=== PATIENT | female | born 1955 | race American Indian/Alaskan Native ===

== ENCOUNTER 2016-10-13 09:17 | Emergency (ER) | payer MEDICAID ==
--- NOTE | 2016-10-13 09:21 | EDM.PDOC ---
<Bob Vu - Last Filed: 10/13/16 09:42> ED HPI GENERAL MEDICAL PROBLEM - General Chief Complaint: Abdominal Pain Stated Complaint: STOMACH HURTS Time Seen by Provider: 10/13/16 09:20 Source of Information: Reports: Patient, Old records, RN, RN notes reviewed History Limitations: Reports: No limitations Bilateral Upper Abdominal Pain Score (Numeric/FACES): 8 - Related Data Allergies Allergy/AdvReac Type Severity Reaction Status Date / Time No Known Allergies Allergy Verified 10/13/16 09:34 Home Meds: Home Meds Albuterol [Proair HFA] 2 inhalation INH Q6HR PRN 02/08/14 [History] Clopidogrel [Plavix] 75 mg PO DAILY 02/08/14 [History] Insulin Glarg,Human.Rec.Analog [Lantus] 50 units SQ BEDTIME 02/08/14 [History] Insulin Lispro [HumaLOG] 8 units SQ TIDAC 02/08/14 [History] oxyCODONE HCl/Acetaminophen [Percocet 10-325 MG] 1 cap PO BID PRN 02/08/14 [ History] Aspirin [[place] Aspirin] 81 mg PO DAILY 10/12/14 [History] atorvaSTATin [Lipitor] 20 mg PO BEDTIME 10/22/14 [History] Past Medical History HEENT History: Reports: Impaired vision Cardiovascular History: Reports: CAD, High cholesterol, Hypertension, SD, Stents Respiratory History: Reports: Asthma, COPD Gastrointestinal History: Reports: Other (see below) Other Gastrointestinal History: ulcers Musculoskeletal History: Reports: Other (see below) Other Musculoskeletal History: Left rotator cuff injury, right shoulder tendonitis Endocrine/Metabolic History: Reports: Diabetes, type II, IDDM, Obesity/BMI 30+ Social & Family History - Family History Family Medical History: Noncontributory Cardiac: Reports: CAD, Heart failure, High cholesterol, Hypertension Respiratory: Reports: Asthma, COPD GI: Reports: Cholelithiasis Musculoskeletal: Reports: Arthritis Endocrine/Metabolic: Reports: Diabetes, type II - Tobacco Use Smoking Status *Q: Current Every Day Smoker Years of Tobacco use: 35 Packs/Tins Daily: 1 Used Tobacco, but Quit: No Second Hand Smoke Exposure: No - Caffeine Use Caffeine Use: Reports: Coffee - Alcohol Use Days Per Week of Alcohol Use: 0 - Recreational Drug Use Recreational Drug Use: No - Living Situation & Occupation Living situation: Reports: , with family Course - Vital Signs Last Recorded V/S: Last Vital Signs Temp 36.7 C 10/13/16 09:25 Pulse 86 10/13/16 09:55 Resp 16 10/13/16 09:25 BP 166/76 H 10/13/16 09:25 Pulse Ox 95 10/13/16 09:25 - Orders/Labs/Meds Orders: Active Orders 24 hr Category Date Time Status Peripheral IV Care [RC] . DIRECTED Care 10/13/16 09:39 Active RT Aerosol Therapy [RC] ASDIRECTED Care 10/13/16 09:48 Active CULTURE STREP A CONFIRMATION [] Stat Lab 10/13/16 09:25 Results STREP SCRN A RAPID W CULT CONF [] Stat Lab 10/13/16 09:25 Results Sodium Chloride 0.9% [Saline Flush] Med 10/13/16 09:39 Active 10 ml FLUSH ASDIRECTED PRN Peripheral IV Insertion Adult [OM.PC] Stat Oth 10/13/16 09:38 Ordered Medication Orders Sodium Chloride (Saline Flush) 10 ml FLUSH ASDIRECTED PRN PRN Reason: Keep Vein Open Labs: Laboratory Tests 10/13/16 10/13/16 10/13/16 Range/Units 09:36 09:50 09:50 WBC 7.7 (5.0-10.0) 10^3/uL RBC 4.79 (4.2-5.4) 10^6/uL Hgb 13.9 (12.0-16.0) g/dL Hct 41.5 (37.0-47.0) % MCV 86.6 (80-100) fL MCH 29.0 (27.0-34.0) pg MCHC 33.5 (33.0-35.0) g/dL Plt Count 290 (150-450) 10^3/uL Neut % (Auto) 59.8 (42.2-75.2) % Lymph % (Auto) 32.2 (20.5-50.1) % [place] % (Auto) 6.1 (2-8) % Eos % (Auto) 1.8 (1.0-3.0) % Baso % (Auto) 0.1 (0.0-1.0) % Sodium 135 (135-145) mmol/L Potassium 3.7 (3.6-5.0) mmol/L Chloride 98 L (101-111) mmol/L Carbon Dioxide 29.0 (21.0-31.0) mmol/L Anion Gap 11.7 BUN 10 (7-18) mg/dL Creatinine 0.6 (0.6-1.3) mg/dL Est Cr Clr Drug Dosing 73.36 mL/min Estimated GFR (MDRD) > 60 BUN/Creatinine Ratio 16.66 Glucose 145 H (74-105) mg/dL Calcium 9.0 (8.4-10.2) mg/dl Total Bilirubin 0.3 (0.2-1.0) mg/dL AST 14 (10-42) IU/L ALT 10 (10-60) IU/L Alkaline Phosphatase 105 (42-121) IU/L Total Protein 8.2 (6.7-8.2) g/dl Albumin 4.0 (3.2-5.5) g/dl Globulin 4.2 Albumin/Globulin Ratio 0.95 Amylase 44 (28-100) U/L Lipase 32 (22-51) U/L Urine Color Yellow (YELLOW) Urine Appearance Cloudy (CLEAR) Urine pH 7.5 (5.0-9.0) Ur Specific [place] 1.015 (1.005-1.030) Urine Protein 30 H (NEGATIVE) Urine Glucose (UA) Negative (NEGATIVE) Urine Ketones Negative (NEGATIVE) Urine Occult Blood Trace-intact H (NEGATIVE) Urine Nitrite Negative (NEGATIVE) Urine Bilirubin Negative (NEGATIVE) Urine Urobilinogen 1.0 (0.2-1.0) mg/dL Ur Leukocyte Esterase Moderate H (NEGATIVE) Urine RBC 50-75 H /HPF Urine WBC >100 H (0-5/HPF) /HPF Ur Epithelial Cells Moderate H /HPF Urine Bacteria Few (0-FEW/HPF) /HPF Meds: Medications Generic Name Dose Route Start Last Admin Trade Name Freq PRN Reason Stop Dose Admin Sodium Chloride 10 ml 10/13/16 09:39 Saline Flush FLUSH ASDIRECTED PRN Keep Vein Open Discontinued Medications Generic Name Dose Route Start Last Admin Trade Name Freq PRN Reason Stop Dose Admin Albuterol/Ipratropium 3 ml 10/13/16 09:48 10/13/16 09:57 Duoneb 3.0-0.5 Mg/3 Ml NEB 04/10/17 09:49 3 ml ONETIME ONE Administration Departure - Departure Disposition: Home, Self-Care 01 Clinical Impression: Bronchitis Urinary tract infection Qualifiers: Urinary tract infection type: site unspecified Hematuria presence: with hematuria Qualified Code(s): N39.0 - Urinary tract infection, site not specified ; R31.9 - Hematuria, unspecified Instructions: Abdominal Pain, Adult, [id number], Acute Bronchitis, Easy-to- Read, Urinary Tract Infection, Adult, [id number] Care Plan Goals: The patient was advised of the examination, lab, x-ray and CT results during the visit. The patient was discharged with a script for Keflex (500 mg) to take 1 by mouth 3 times per day for 7 days. If the patient has any additional symptoms or concerns, the patient should follow-up with her primary care facility or return to the emergency department. <Marvin Xiong - Last Filed: 10/13/16 12:02> ED HPI GENERAL MEDICAL PROBLEM - History of Present Illness INITIAL COMMENTS - FREE TEXT/NARRATIVE: This 61 yo female patient reports to the ED with upper abdominal pain, a cough and some shortness of breath. The patient reports her pain started several days ago, but has been getting worse. The patient reports she has chronic shortness of breath that seems to be a little worse today. Onset: gradual Duration: Day(s):, Constant, Getting worse Location: Reports: chest, abdomen Quality: Reports: Ache, Dull Severity: moderate Improves with: Reports: None Worsens with: Reports: None Associated Symptoms: Reports: cough, loss of appetite, shortness of breath ED ROS GENERAL - Review of Systems Review Of Systems: ROS reveals no pertinent complaints other than HPI. ED EXAM, GENERAL - Physical Exam Exam: See Below Exam Limited By: No limitations General Appearance: alert, WD/WN, mild distress, obese Eye Exam: bilateral eye: EOMI, normal inspection, PERRL Ears: normal external exam, normal canal, hearing grossly normal, normal TMs Nose: normal inspection, normal mucosa, no blood Throat/Mouth: Normal inspection, Normal lips, Normal teeth, Normal gums, Normal oropharynx, Normal voice, No airway compromise Head: atraumatic, normocephalic Neck: normal inspection, supple, non-tender, full range of motion Respiratory/Chest: no respiratory distress, decreased breath sounds Cardiovascular: normal peripheral pulses, regular rate, rhythm, no edema, no gallop, no murmur, no rub GI/Abdominal: normal bowel sounds, tender (upper abdomen) (Female) Exam: Deferred Rectal (Female) Exam: Deferred Back Exam: normal inspection, full range of motion, NT Extremities: normal inspection, normal range of motion, non-tender, normal capillary refill, no pedal edema Neurological: alert, oriented, CN II-XII intact, normal cognition, normal gait, normal reflexes, no motor/sensory deficits Psychiatric: normal affect, normal mood Skin Exam: Warm, Dry, Intact, Normal color, No rash Lymphatic: no adenopathy Departure - Departure Time of Disposition: 11:57 Condition: fair
[2016-10-13] MEDS ORDERED: Sodium Chloride 0.9% 10 ML Syringe FLUSH PRN (09:39)
[2016-10-13 09:40] VITALS: BP 166/76
[2016-10-13] MEDS ORDERED: Albuterol/Ipratropium 3.0-0.5 MG/3 ML Neb Soln NEB ONE (09:48)
[2016-10-13 10:16] LABS: CHLORIDE,CL 98 mmol/L (101-111); SODIUM,NA 135 mmol/L (135-145)
--- NOTE | 2016-10-13 10:31 | CR ---
CLINICAL HISTORY: 61-year-old female with cough, dyspnea and fever. INTERPRETATION: Medial segment atelectasis/fibrosis middle lobe, on the right. Hypertrophic arthritic changes of the spine. Normal cardiac silhouette without alveolar edema or dependent effusion. No lung mass, hilar lymphadenopathy or focal lobar pneumonia.
--- NOTE | 2016-10-13 11:38 | CT ---
CLINICAL HISTORY: 61-year-old 171 pound female with hematuria and "abdominal" pain. This diabetic fe male smoker was reported on previous CT scan August 2015 to have "nephrolithiasis and cholecystect wilfrid but otherwise unremarkable. INTERPRETATION: Abnormal. 1. Arteriovascular calcifications and punctate calcifications upper/mid pole calyces, respectively, right and left kidney unchanged since exam 31 August 2015. No pyelocaliectasis or ureterectasis e ither kidney. No intraluminal calcifications urinary bladder. 2. Extensive atheromatous calcifications aortoiliac and renal arteries. No aneurysm or dissection. 3. Cholecystectomy. Normal liver, stomach, spleen, pancreas (postop dilatation common bile duct). No new renal cortical mass lesion (cystic or solid). Normal appendix RLQ. 4. No pelvic or abdominal mass lesion, inflammatory "dirty" peritoneal fat, signs of mechanical josé l obstruction, ascites or free intraperitoneal air. 5. Lung bases are clear. CONCLUSION: Nephrolithiasis (unchanged). No new signs of obstructive uropathy.
== END 2016-10-13 12:10 | disposition home or self-care (01) ==
LOC: DL.ED 09:17
DX: J40 Bronchitis, not specified as acute or chronic (principal); N39.0 Urinary tract infection, site not specified; Z79.82 Long term (current) use of aspirin; Z79.4 Long term (current) use of insulin; Z79.899 Other long term (current) drug therapy; I25.10 Atherosclerotic heart disease of native coronary artery without angina pectoris; I10 Essential (primary) hypertension; E78.00 Pure hypercholesterolemia, unspecified; Z95.5 Presence of coronary angioplasty implant and graft; J44.9 Chronic obstructive pulmonary disease, unspecified; J45.909 Unspecified asthma, uncomplicated; E11.9 Type 2 diabetes mellitus without complications; E66.9 Obesity, unspecified; Z68.30 Body mass index [BMI] 30.0-30.9, adult; F17.200 Nicotine dependence, unspecified, uncomplicated
CPT/HCPCS: 36415; 71020; 74176; 80053; 81001; 82150; 83690; 85025; 87081; 87430; 87804; 94640; 99284

== ENCOUNTER 2016-11-20 09:54 | Emergency (ER) | payer MEDICAID ==
[2016-11-20 10:30] VITALS: BP 181/60
--- NOTE | 2016-11-20 10:47 | EDM.PDOC ---
{null, ED HPI GENERAL MEDICAL PROBLEM - General Chief Complaint: Abdominal Pain Stated Complaint: [id number] STOMACH PAIN KIDNEY STONE Time Seen by Provider: 11/20/16 10:30 Source of Information: Reports: Patient History Limitations: Reports: No Limitations - History of Present Illness INITIAL COMMENTS - FREE TEXT/NARRATIVE: This 61 yo female patient reports to the ED with lower abdominal pain. The patient reports her pain started at 0700 this morning and states her pain is a sharp stabbing pain in her lower abdomen radiating to her lower back. The patient reports she has had similar symptoms in the past due to a UTI and kidney stones. The patient reports she has not taken her pain medications this morning, but came directly to the ED to figure out what is happening. The patient reports she has been in the clinic this week with no problems. The patient is supposed to be following up with Urology in December. Onset: Today, Sudden Onset Date: 11/20/16 Onset Time: 07:00 Duration: Constant, Getting Worse Location: Reports: Abdomen (lower abdomen radiating to her back) Quality: Reports: Ache, Sharp Severity: Severe Improves with: Reports: None Worsens with: Reports: None Context: Reports: Other Pelvic Pain Score (Numeric/FACES): 10 - Related Data Allergies Allergy/AdvReac Type Severity Reaction Status Date / Time No Known Allergies Allergy Unverified 11/20/16 10:01 Home Meds: Home Meds Albuterol [Proair HFA] 2 inhalation INH Q6HR PRN 02/08/14 [History] Clopidogrel [Plavix] 75 mg PO DAILY 02/08/14 [History] Insulin Glarg,Human.Rec.Analog [Lantus] 70 units SQ BEDTIME 02/08/14 [History] Insulin Lispro [HumaLOG] 8 units SQ TIDAC 02/08/14 [History] oxyCODONE HCl/Acetaminophen [Percocet 10-325 MG] 0.5 tab PO TID PRN 02/08/14 [ History] Aspirin [[place] Aspirin] 81 mg PO DAILY 10/12/14 [History] Lisinopril [Prinivil] 10 mg PO DAILY 11/20/16 [History] Metoprolol Succinate 25 mg PO DAILY 11/20/16 [History] atorvaSTATin Calcium [Atorvastatin Calcium] 80 mg PO BEDTIME 05/18/17 [History] Past Medical History HEENT History: Reports: None Cardiovascular History: Reports: CAD, High Cholesterol, Hypertension, ID, Stents Respiratory History: Reports: Asthma Gastrointestinal History: Reports: Other (See Below) Other Gastrointestinal History: ulcers Genitourinary History: Reports: Renal Calculus Musculoskeletal History: Reports: None Other Musculoskeletal History: Left rotator cuff injury, right shoulder tendonitis Neurological History: Reports: CVA Psychiatric History: Reports: None Endocrine/Metabolic History: Reports: Diabetes, Type II Hematologic History: Reports: None Oncologic (Cancer) History: Reports: None Dermatologic History: Reports: Other (See Below) Other Dermatologic History: allergy to sun. itching and reddness - Past Surgical History Cardiovascular Surgical History: Reports: Coronary Artery Stent GI Surgical History: Reports: None Female Surgical History: Reports: None Social & Family History - Family History Family Medical History: Noncontributory Cardiac: Reports: CAD, Heart Failure, High Cholesterol, Hypertension Respiratory: Reports: Asthma, COPD GI: Reports: Cholelithiasis Musculoskeletal: Reports: Arthritis Endocrine/Metabolic: Reports: Diabetes, type II - Tobacco Use Smoking Status *Q: Current Every Day Smoker Years of Tobacco use: 35 Packs/Tins Daily: 1 Used Tobacco, but Quit: No Second Hand Smoke Exposure: No - Caffeine Use Caffeine Use: Reports: Coffee - Alcohol Use Days Per Week of Alcohol Use: 0 - Recreational Drug Use Recreational Drug Use: No - Living Situation & Occupation Living situation: Reports: , with Family ED ROS GENERAL - Review of Systems Review Of Systems: ROS reveals no pertinent complaints other than HPI. ED EXAM, RENAL/ - Physical Exam Exam: See Below Exam Limited By: No Limitations General Appearance: Alert, WD/WN, Moderate Distress, Obese Eye Exam: Bilateral Eye: EOMI, Normal Inspection, PERRL Ears: Normal External Exam, Normal Canal, Hearing Grossly Normal, Normal TMs Nose: Normal Inspection, Normal Mucosa, No Blood Throat/Mouth: Normal Inspection, Normal Lips, Normal Teeth, Normal Gums, Normal Oropharynx, Normal Voice, No Airway Compromise Head: Atraumatic, Normocephalic Neck: Normal Inspection, Supple, Non-Tender, Full Range of Motion Respiratory/Chest: No Respiratory Distress, Lungs Clear, Normal Breath Sounds, No Accessory Muscle Use, Chest Non-Tender Cardiovascular: Normal Peripheral Pulses, Regular Rate, Rhythm, No Edema, No Gallop, No JVD, No Murmur, No Rub GI/Abdominal: Normal Bowel Sounds, No Organomegaly, No Distention, No Abnormal Bruit, No Mass, Pelvis Stable, Tender (lower abdomen) (Female) Exam: Deferred Rectal (Female) Exam: Deferred Back Exam: Normal Inspection, Full Range of Motion, NT Extremities: Normal Inspection, Normal Range of Motion, Non-Tender, Normal Capillary Refill, No Pedal Edema Neurological: Alert, Oriented, CN II-XII Intact, Normal Cognition, Normal Reflexes, No Motor/Sensory Deficits Psychiatric: Normal Affect, Normal Mood Skin Exam: Warm, Dry, Intact, Normal Color, No Rash Lymphatic: No Adenopathy Course - Vital Signs Last Recorded V/S: Last Vital Signs Temp 36.6 C 11/20/16 09:56 Pulse 82 11/20/16 09:56 Resp 16 11/20/16 09:56 BP 181/60 H 11/20/16 09:56 Pulse Ox 97 11/20/16 09:56 - Orders/Labs/Meds Orders: Active Orders 24 hr Category Date Time Status Abdomen Pelvis wo Cont [CT] Urgent Exams 11/20/16 11:19 Taken CULTURE URINE [RM] Stat Lab 11/20/16 10:25 Received CULTURE URINE [RM] Stat Lab 11/20/16 13:05 Ordered Labs: Laboratory Tests 11/20/16 11/20/16 11/20/16 Range/Units 10:25 10:25 10:26 WBC 7.8 (5.0-10.0) 10^3/uL RBC 4.79 (4.2-5.4) 10^6/uL Hgb 13.7 (12.0-16.0) g/dL Hct 41.8 (37.0-47.0) % MCV 87.3 (80-100) fL MCH 28.6 (27.0-34.0) pg MCHC 32.8 L (33.0-35.0) g/dL Plt Count 232 (150-450) 10^3/uL Neut % (Auto) 65.1 (42.2-75.2) % Lymph % (Auto) 27.4 (20.5-50.1) % Ida % (Auto) 5.4 (2-8) % Eos % (Auto) 2.0 (1.0-3.0) % Baso % (Auto) 0.1 (0.0-1.0) % Sodium (135-145) mmol/L Potassium (3.6-5.0) mmol/L Chloride (101-111) mmol/L Carbon Dioxide (21.0-31.0) mmol/L Anion Gap BUN (7-18) mg/dL Creatinine (0.6-1.3) mg/dL Est Cr Clr Drug Dosing mL/min Estimated GFR (MDRD) BUN/Creatinine Ratio Glucose (74-105) mg/dL Calcium (8.4-10.2) mg/dl Total Bilirubin (0.2-1.0) mg/dL AST (10-42) IU/L ALT (10-60) IU/L Alkaline Phosphatase (42-121) IU/L Total Protein (6.7-8.2) g/dl Albumin (3.2-5.5) g/dl Globulin Albumin/Globulin Ratio Urine Color Yellow (YELLOW) Urine Appearance Slightly cloudy (CLEAR) Urine pH 7.0 (5.0-9.0) Ur Specific [place] 1.010 (1.005-1.030) Urine Protein 30 H (NEGATIVE) Urine Glucose (UA) 500 H (NEGATIVE) Urine Ketones Negative (NEGATIVE) Urine Occult Blood Trace-lysed H (NEGATIVE) Urine Nitrite Negative (NEGATIVE) Urine Bilirubin Negative (NEGATIVE) Urine Urobilinogen 0.2 (0.2-1.0) mg/dL Ur Leukocyte Esterase Small H (NEGATIVE) Urine RBC 0-5 /HPF Urine WBC 50-75 H (0-5/HPF) /HPF Ur Epithelial Cells Few /HPF Urine Bacteria Few (0-FEW/HPF) /HPF Urine Opiates Screen Negative (NEGATIVE) Ur Oxycodone Screen Negative (NEGATIVE) Urine Methadone Screen Negative (NEGATIVE) Ur Barbiturates Screen Negative (NEGATIVE) U Tricyclic Antidepress Negative (NEGATIVE) Ur Phencyclidine Scrn Negative (NEGATIVE) Ur Amphetamine Screen Negative (NEGATIVE) U Methamphetamines Scrn Negative (NEGATIVE) Urine MDMA Screen Negative (NEGATIVE) U Benzodiazepines Scrn Negative (NEGATIVE) Urine Cocaine Screen Negative (NEGATIVE) U Marijuana (THC) Screen Negative (NEGATIVE) 11/20/16 Range/Units 10:26 WBC (5.0-10.0) 10^3/uL RBC (4.2-5.4) 10^6/uL Hgb (12.0-16.0) g/dL Hct (37.0-47.0) % MCV (80-100) fL MCH (27.0-34.0) pg MCHC (33.0-35.0) g/dL Plt Count (150-450) 10^3/uL Neut % (Auto) (42.2-75.2) % Lymph % (Auto) (20.5-50.1) % Ida % (Auto) (2-8) % Eos % (Auto) (1.0-3.0) % Baso % (Auto) (0.0-1.0) % Sodium 136 (135-145) mmol/L Potassium 3.8 (3.6-5.0) mmol/L Chloride 102 (101-111) mmol/L Carbon Dioxide 27.0 (21.0-31.0) mmol/L Anion Gap 10.8 BUN 11 (7-18) mg/dL Creatinine 0.7 (0.6-1.3) mg/dL Est Cr Clr Drug Dosing 62.88 mL/min Estimated GFR (MDRD) > 60 BUN/Creatinine Ratio 15.71 Glucose 247 H (74-105) mg/dL Calcium 9.2 (8.4-10.2) mg/dl Total Bilirubin 0.4 (0.2-1.0) mg/dL AST 15 (10-42) IU/L ALT 12 (10-60) IU/L Alkaline Phosphatase 113 (42-121) IU/L Total Protein 7.7 (6.7-8.2) g/dl Albumin 4.2 (3.2-5.5) g/dl Globulin 3.5 Albumin/Globulin Ratio 1.20 Urine Color (YELLOW) Urine Appearance (CLEAR) Urine pH (5.0-9.0) Ur Specific [place] (1.005-1.030) Urine Protein (NEGATIVE) Urine Glucose (UA) (NEGATIVE) Urine Ketones (NEGATIVE) Urine Occult Blood (NEGATIVE) Urine Nitrite (NEGATIVE) Urine Bilirubin (NEGATIVE) Urine Urobilinogen (0.2-1.0) mg/dL Ur Leukocyte Esterase (NEGATIVE) Urine RBC /HPF Urine WBC (0-5/HPF) /HPF Ur Epithelial Cells /HPF Urine Bacteria (0-FEW/HPF) /HPF Urine Opiates Screen (NEGATIVE) Ur Oxycodone Screen (NEGATIVE) Urine Methadone Screen (NEGATIVE) Ur Barbiturates Screen (NEGATIVE) U Tricyclic Antidepress (NEGATIVE) Ur Phencyclidine Scrn (NEGATIVE) Ur Amphetamine Screen (NEGATIVE) U Methamphetamines Scrn (NEGATIVE) Urine MDMA Screen (NEGATIVE) U Benzodiazepines Scrn (NEGATIVE) Urine Cocaine Screen (NEGATIVE) U Marijuana (THC) Screen (NEGATIVE) Meds: Medications Discontinued Medications Generic Name Dose Route Start Last Admin Trade Name [place] PRN Reason Stop Dose Admin Sodium Chloride 1,000 mls @ 999 mls/hr 11/20/16 11:23 11/20/16 11:49 Normal Saline IV 11/20/16 12:23 999 mls/hr .BOLUS ONE Administration Ketorolac Tromethamine 30 mg 11/20/16 13:03 Toradol IVPUSH 11/20/16 13:04 ONETIME ONE Departure - Departure Time of Disposition: 13:06 Disposition: Home, Self-Care 01 Condition: fair Clinical Impression: UTI, Urinary tract infectious disease, Kidney stones - Discharge Information Instructions: Urinary Tract Infection, Adult, [id number], Kidney Stones, Easy -to-Read Forms: ED Department Discharge Care Plan Goals: The patient was advised of the examination, lab and CT results during the visit. The patient was given a liter of IV fluid and Toradol while in the ED. The patient was discharged with a script for Keflex (500 mg) to take 1 by mouth 3 times per day for 7 days. The patient was encouraged to follow-up with her primary care facility or her specialist for continued evaluation and further management. If the patient has any additional symptoms or concerns, the patient should visit either return to the emergency department or visit her primary care facility. - My Orders Last 24 Hours: My Active Orders 11/20/16 10:25 CULTURE URINE [RM] Stat 11/20/16 11:19 Abdomen Pelvis wo Cont [CT] Urgent 11/20/16 13:05 CULTURE URINE [RM] Stat - Assessment/Plan Last 24 Hours: My Active Orders 11/20/16 10:25 CULTURE URINE [RM] Stat 11/20/16 11:19 Abdomen Pelvis wo Cont [CT] Urgent 11/20/16 13:05 CULTURE URINE [RM] Stat }
[2016-11-20 10:55] LABS: CHLORIDE,CL 102 mmol/L (101-111); SODIUM,NA 136 mmol/L (135-145)
[2016-11-20] MEDS ORDERED: Sodium Chloride 0.9% 1,000 ML IV ONE (11:23)
[2016-11-20] MEDS ORDERED: Ketorolac 30 MG/ML SDV IVPUSH ONE (13:03)
== END 2016-11-20 13:35 | disposition home or self-care (01) ==
LOC: EDUNIT# → DL.ED 09:54
DX: N39.0 Urinary tract infection, site not specified (principal); N20.0 Calculus of kidney; I25.10 Atherosclerotic heart disease of native coronary artery without angina pectoris; E78.00 Pure hypercholesterolemia, unspecified; I10 Essential (primary) hypertension; I25.2 Old myocardial infarction; J45.909 Unspecified asthma, uncomplicated; E11.9 Type 2 diabetes mellitus without complications; F17.210 Nicotine dependence, cigarettes, uncomplicated; Z79.4 Long term (current) use of insulin; Z79.82 Long term (current) use of aspirin; Z79.899 Other long term (current) drug therapy
CPT/HCPCS: 36415; 74176; 80053; 80305; 81001; 85025; 87086; 96361; 96374; 99284; J1885; J7030

== ENCOUNTER 2017-03-10 20:48 | Emergency (ER) | payer MEDICAID ==
[2017-03-10 21:09] VITALS: BP 183/58
--- NOTE | 2017-03-10 21:40 | EDM.PDOC ---
ED HPI GENERAL MEDICAL PROBLEM - General Chief Complaint: ENT Problem Stated Complaint: FACE SWOLLEN, [id number] Time Seen by Provider: 03/10/17 21:30 Source of Information: Reports: Patient History Limitations: Reports: No Limitations - History of Present Illness INITIAL COMMENTS - FREE TEXT/NARRATIVE: This 61 yo female patient reports to the ED with swelling of the left side of her face and left orbit. The patient reports she started to notice increased swelling this morning and pain this evening. The patient reports she has not been seen by another provider for these symptoms. Onset: Today Duration: Constant, Getting Worse Location: Reports: Face (left face (cheek to orbit)) Quality: Reports: Ache, Dull Severity: Severe Improves with: Reports: None Worsens with: Reports: None Associated Symptoms: Reports: No Other Symptoms Left Eye Pain Score (Numeric/FACES): 10 - Related Data Allergies Allergy/AdvReac Type Severity Reaction Status Date / Time No Known Allergies Allergy Unverified 03/10/17 21:08 Home Meds: Home Meds Albuterol [Proair HFA] 2 inhalation INH Q6HR PRN 02/08/14 [History] Clopidogrel [Plavix] 75 mg PO DAILY 02/08/14 [History] Insulin Glarg,Human.Rec.Analog [Lantus] 30 units SQ BEDTIME 02/08/14 [History] Insulin Lispro [HumaLOG] 8 units SQ TIDAC 02/08/14 [History] oxyCODONE HCl/Acetaminophen [Percocet 10-325 MG] 0.5 tab PO TID PRN 02/08/14 [ History] Aspirin [[facility] Aspirin] 81 mg PO DAILY 10/12/14 [History] Lisinopril [Prinivil] 10 mg PO DAILY 11/20/16 [History] Metoprolol Succinate 25 mg PO DAILY 11/20/16 [History] atorvaSTATin Calcium [Atorvastatin Calcium] 80 mg PO BEDTIME 11/20/16 [History] Past Medical History HEENT History: Reports: None Cardiovascular History: Reports: CAD, High Cholesterol, Hypertension, ID, Stents Respiratory History: Reports: Asthma, COPD Gastrointestinal History: Reports: Gastritis, Other (See Below) Other Gastrointestinal History: ulcers Genitourinary History: Reports: Renal Calculus 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 itching and reddness - Past Surgical History Cardiovascular Surgical History: Reports: Coronary Artery Stent GI Surgical History: Reports: None, Appendectomy, Cholecystectomy Female Surgical History: Reports: None Social & Family History - Family History Family Medical History: Noncontributory Cardiac: Reports: CAD, High Cholesterol, Heart Failure, Hypertension Respiratory: Reports: Asthma, COPD GI: Reports: Cholelithiasis Musculoskeletal: Reports: Arthritis Endocrine/Metabolic: Reports: Diabetes, type II - Tobacco Use Smoking Status *Q: Current Every Day Smoker Years of Tobacco use: 56 Packs/Tins Daily: 2 Used Tobacco, but Quit: No Second Hand Smoke Exposure: No - Caffeine Use Caffeine Use: Reports: Coffee Other Caffeine Use: all day long - Alcohol Use Days Per Week of Alcohol Use: 0 - Recreational Drug Use Recreational Drug Use: No - Living Situation & Occupation Living situation: Reports: with Family, ED ROS ENT - Review of Systems Review Of Systems: ROS reveals no pertinent complaints other than HPI. ED EXAM, ENT - Physical Exam Exam: See Below Exam Limited By: No Limitations General Appearance: Alert, WD/WN, Mild Distress, Obese Eye Exam: Left Eye: Periorbital Changes (swelling), Bilateral Eye: EOMI, PERRL Ears: Normal External Exam, Normal Canal, Hearing Grossly Normal, Normal TMs Nose: Normal Inspection, Normal Mucousa, No Blood Mouth/Throat: Other (The patient has pain in the left upper jaw and only 1 tooth remaining on that side. ) Head: Atraumatic, Facial Swelling (left cheek and orbital swelling and erythema) Neck: Normal Inspection, Supple, Non-Tender, Full Range of Motion Respiratory/Chest: No Respiratory Distress, Lungs Clear, Normal Breath Sounds, No Accessory Muscle Use, Chest Non-Tender Cardiovascular: Normal Peripheral Pulses, Regular Rate, Rhythm, No Edema, No Gallop, No JVD, No Murmur, No Rub GI/Abdominal: Normal Bowel Sounds, Soft, Non-Tender, No Organomegaly, No Distention, No Abnormal Bruit, No Mass (Female) Exam: Deferred Rectal (Female) Exam: Deferred Back: Normal Inspection, Full Range of Motion Extremities: Normal Inspection, Normal Range of Motion, Non-Tender, No Pedal Edema, Normal Capillary Refill Neurological: Alert, Oriented, CN II-XII Intact, Normal Cognition, Normal Gait, Normal Reflexes, No Motor/Sensory Deficits Psychiatric: Normal Affect, Normal Mood Skin: Warm, Dry, Intact, No Rash, Erythema (left cheek and left orbit) Lymphatic: No Adenopathy Course - Vital Signs Last Recorded V/S: Last Vital Signs Temp 36.2 C 03/10/17 21:00 Pulse 89 03/10/17 21:00 Resp 16 03/10/17 21:00 BP 183/58 H 03/10/17 21:00 Pulse Ox 95 03/10/17 21:00 - Orders/Labs/Meds Labs: Laboratory Tests 03/10/17 03/10/17 03/10/17 Range/Units 21:53 21:53 21:53 WBC 9.0 (5.0-10.0) 10^3/uL RBC 4.61 (4.2-5.4) 10^6/uL Hgb 13.3 (12.0-16.0) g/dL Hct 39.8 (37.0-47.0) % MCV 86.3 (80-100) fL MCH 28.9 (27.0-34.0) pg MCHC 33.4 (33.0-35.0) g/dL Plt Count 219 (150-450) 10^3/uL Neut % (Auto) 70.8 (42.2-75.2) % Lymph % (Auto) 20.3 L (20.5-50.1) % [place] % (Auto) 6.7 (2-8) % Eos % (Auto) 1.8 (1.0-3.0) % Baso % (Auto) 0.4 (0.0-1.0) % Sodium 135 (135-145) mmol/L Potassium 4.2 (3.6-5.0) mmol/L Chloride 99 L (101-111) mmol/L Carbon Dioxide 25.0 (21.0-31.0) mmol/L Anion Gap 15.2 BUN 18 (7-18) mg/dL Creatinine 0.7 (0.6-1.3) mg/dL Est Cr Clr Drug Dosing 65.90 mL/min Estimated GFR (MDRD) > 60 BUN/Creatinine Ratio 25.71 Glucose 412 H* (74-105) mg/dL Lactic Acid 1.6 (0.5-2.2) mmol/L Calcium 9.0 (8.4-10.2) mg/dl Total Bilirubin 0.4 (0.2-1.0) mg/dL AST 15 (10-42) IU/L ALT 14 (10-60) IU/L Alkaline Phosphatase 96 (42-121) IU/L Total Protein 7.2 (6.7-8.2) g/dl Albumin 3.7 (3.2-5.5) g/dl Globulin 3.5 Albumin/Globulin Ratio 1.06 Meds: Medications Discontinued Medications Generic Name Dose Route Start Last Admin Trade Name Freq PRN Reason Stop Dose Admin Clindamycin HCl 300 mg 03/10/17 22:33 Cleocin PO 03/10/17 22:34 ONETIME ONE Departure - Departure Time of Disposition: 22:36 Disposition: Home, Self-Care 01 Condition: Fair Clinical Impression: Dental abscess - Discharge Information Instructions: Dental Abscess, [id number] Forms: ED Department Discharge Care Plan Goals: The patient was advised of the examination and the lab results during the visit. The patient was given an oral dose of Clindamycin (300 mg) while in the ED. The patient was discharged with a script for Clindamycin (300 mg) #30 to take 1 by mouth 3 times per day for 10 days. If the patient has any additional symptoms or concerns, the patient should follow-up with her dentist for continued evaluation and further treatment.
[2017-03-10 22:21] LABS: CHLORIDE,CL 99 mmol/L (101-111); SODIUM,NA 135 mmol/L (135-145)
[2017-03-10] MEDS ORDERED: Clindamycin HCl 150 MG Cap PO ONE (22:33)
== END 2017-03-10 22:47 | disposition home or self-care (01) ==
LOC: DL.ED 20:48
DX: K04.7 Periapical abscess without sinus (principal); E11.40 Type 2 diabetes mellitus with diabetic neuropathy, unspecified; I25.10 Atherosclerotic heart disease of native coronary artery without angina pectoris; E78.00 Pure hypercholesterolemia, unspecified; I25.2 Old myocardial infarction; J44.9 Chronic obstructive pulmonary disease, unspecified; F17.210 Nicotine dependence, cigarettes, uncomplicated; Z95.5 Presence of coronary angioplasty implant and graft; Z90.49 Acquired absence of other specified parts of digestive tract; Z79.899 Other long term (current) drug therapy; Z79.4 Long term (current) use of insulin; Z79.82 Long term (current) use of aspirin
CPT/HCPCS: 36415; 80053; 83605; 85025; 99283; A9270

== ENCOUNTER 2017-08-14 18:41 | Emergency (ER) | payer MEDICAID ==
[2017-08-14 18:59] VITALS: BP 162/65
[2017-08-14] MEDS ORDERED: Amoxicillin/Clavulanate K 875-125 MG Tab PO ONE (21:02)
--- NOTE | 2017-08-14 21:02 | EDM.PDOC ---
ED HPI GENERAL MEDICAL PROBLEM - General Chief Complaint: Respiratory Problem Stated Complaint: [id number] FEELS SICK,CHEST PAINS,RUNNY NOSE Time Seen by Provider: 08/14/17 19:30 Source of Information: Reports: Patient History Limitations: Reports: No Limitations - History of Present Illness INITIAL COMMENTS - FREE TEXT/NARRATIVE: cough and cold symptoms x 4 days, productive. No fever. Runny nose, mattery eyes. Hx diabetes, COPD. Continues to smoke one PPD. chestwith cough Pain Score (Numeric/FACES): 3 - Related Data Allergies Allergy/AdvReac Type Severity Reaction Status Date / Time No Known Allergies Allergy Unverified 08/14/17 18:48 Home Meds: Home Meds Albuterol [Proair HFA] 2 inhalation INH Q6HR PRN 02/08/14 [History] Clopidogrel [Plavix] 75 mg PO DAILY 02/08/14 [History] Insulin Glarg,Human.Rec.Analog [Lantus] 30 units SQ BEDTIME 02/08/14 [History] Insulin Lispro [HumaLOG] 8 units SQ TIDAC 02/08/14 [History] Aspirin [[facility] Aspirin] 81 mg PO DAILY 10/12/14 [History] Lisinopril [Prinivil] 10 mg PO DAILY 11/20/16 [History] Metoprolol Succinate 25 mg PO DAILY 11/20/16 [History] atorvaSTATin Calcium [Atorvastatin Calcium] 80 mg PO BEDTIME 11/20/16 [History] Past Medical History HEENT History: Reports: None Cardiovascular History: Reports: CAD, High Cholesterol, Hypertension, ID, Stents Respiratory History: Reports: Asthma, COPD Gastrointestinal History: Reports: Gastritis, Other (See Below) Other Gastrointestinal History: ulcers Genitourinary History: Reports: Renal Calculus 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 itching and reddness - Past Surgical History Cardiovascular Surgical History: Reports: Coronary Artery Stent GI Surgical History: Reports: None, Appendectomy, Cholecystectomy Female Surgical History: Reports: None Social & Family History - Family History Family Medical History: Noncontributory Cardiac: Reports: CAD, High Cholesterol, Heart Failure, Hypertension Respiratory: Reports: Asthma, COPD GI: Reports: Cholelithiasis Musculoskeletal: Reports: Arthritis Endocrine/Metabolic: Reports: Diabetes, type II - Tobacco Use Smoking Status *Q: Current Every Day Smoker Years of Tobacco use: 20 Packs/Tins Daily: 0.5 Used Tobacco, but Quit: No Second Hand Smoke Exposure: No - Caffeine Use Caffeine Use: Reports: Coffee Other Caffeine Use: all day long - Alcohol Use Days Per Week of Alcohol Use: 0 - Recreational Drug Use Recreational Drug Use: No - Living Situation & Occupation Living situation: Reports: with Family, ED ROS GENERAL - Review of Systems Review Of Systems: See Below Constitutional: Reports: Fever HEENT: Reports: Rhinitis, Sinus Problem. Denies: Throat Pain Respiratory: Reports: Cough Cardiovascular: Reports: No Symptoms GI/Abdominal: Reports: No Symptoms : Reports: No Symptoms Musculoskeletal: Reports: No Symptoms Skin: Reports: No Symptoms Neurological: Reports: No Symptoms ED EXAM, GENERAL - Physical Exam Exam: See Below Exam Limited By: No Limitations General Appearance: Alert, WD/WN Eye Exam: Bilateral Eye: EOMI Ears: Normal External Exam Nose: Normal Inspection, Nasal Drainage (clear) Throat/Mouth: Normal Inspection Neck: Normal Inspection, Full Range of Motion. No: Lymphadenopathy (L), Lymphadenopathy (R) Respiratory/Chest: No Respiratory Distress, Lungs Clear, Decreased Breath Sounds , Other (loose cough) Cardiovascular: Regular Rate, Rhythm GI/Abdominal: Normal Bowel Sounds Extremities: Normal Inspection Neurological: Alert, Oriented Skin Exam: Warm, Dry, Intact, Normal Color Course - Vital Signs Last Recorded V/S: Last Vital Signs Temp 96.8 F 08/14/17 18:57 Pulse 88 08/14/17 18:57 Resp 20 08/14/17 18:57 BP 162/65 H 08/14/17 18:57 Pulse Ox 96 08/14/17 18:57 - Orders/Labs/Meds Meds: Medications Discontinued Medications Generic Name Dose Route Start Last Admin Trade Name Freq PRN Reason Stop Dose Admin Amoxicillin/Clavulanate Potassium 1 tab 08/14/17 21:02 08/14/17 21:12 Augmentin 875 Mg/125 Mg PO 08/14/17 21:03 1 tab ONETIME ONE Administration Departure - Departure Time of Disposition: 20:58 Disposition: Home, Self-Care 01 Condition: Good Clinical Impression: Upper respiratory infection with cough and congestion COPD (chronic obstructive pulmonary disease) Qualifiers: COPD type: chronic bronchitis Chronic bronchitis type: mucopurulent Qualified Code(s): J41.1 - Mucopurulent chronic bronchitis - Discharge Information Instructions: Upper Respiratory Infection, Adult, [id number] Referrals: PCP,None [Primary Care Provider] - Forms: ED Department Discharge Additional Instructions: Humidification Augmentin 875/125 one twice daily for one week Robitussin for cough congestion follow up if not improving in one week
== END 2017-08-14 21:12 | disposition home or self-care (01) ==
LOC: DL.ED 18:41
DX: J41.1 Mucopurulent chronic bronchitis (principal); J06.9 Acute upper respiratory infection, unspecified; I10 Essential (primary) hypertension; I25.2 Old myocardial infarction; E11.40 Type 2 diabetes mellitus with diabetic neuropathy, unspecified; E78.00 Pure hypercholesterolemia, unspecified; F17.210 Nicotine dependence, cigarettes, uncomplicated; Z79.899 Other long term (current) drug therapy; Z79.82 Long term (current) use of aspirin; Z79.4 Long term (current) use of insulin
CPT/HCPCS: 71046; 99283; A9270

== ENCOUNTER 2019-09-06 18:13 | Emergency (ER) | payer MEDICAID ==
[2019-09-06 18:25] VITALS: BP 200/61; PULSE 114
--- NOTE | 2019-09-06 18:25 | EDM.PDOC ---
<Louis Vu - Last Filed: 09/06/19 19:01> ED HPI GENERAL MEDICAL PROBLEM - General Chief Complaint: Abdominal Pain Stated Complaint: AMBULANCE Time Seen by Provider: 09/06/19 18:25 Source of Information: Reports: Patient, EMS, Old Records, RN, RN Notes Reviewed History Limitations: Reports: No Limitations - History of Present Illness INITIAL COMMENTS - FREE TEXT/NARRATIVE: Pt arrives to ER by ambulance with c/o shortness of breath, fever, cough, nausea , and some abdominal discomfort. Hx of COPD, home oxygen dependent, uses nebulizers but not improving. Pt continues to smoke. Several family members have been ill with similar symptoms recently. Abdomen Pain Score (Numeric/FACES): 6 - Related Data Allergies Allergy/AdvReac Type Severity Reaction Status Date / Time No Known Allergies Allergy Verified 09/06/19 18:26 Home Meds: Home Meds Albuterol [Proair HFA] 2 inhalation INH Q6HR PRN 02/08/14 [History] Clopidogrel [Plavix] 75 mg PO DAILY 02/08/14 [History] Insulin Glarg,Human.Rec.Analog [Lantus] 30 units SQ BEDTIME 02/08/14 [History] Insulin Lispro [HumaLOG] 8 units SQ TIDAC 02/08/14 [History] Aspirin [[place] Aspirin] 81 mg PO DAILY 10/12/14 [History] Lisinopril [Prinivil] 10 mg PO DAILY 11/20/16 [History] Metoprolol Succinate 25 mg PO DAILY 11/20/16 [History] atorvaSTATin Calcium [Atorvastatin Calcium] 80 mg PO BEDTIME 11/20/16 [History] Past Medical History HEENT History: Reports: None Cardiovascular History: Reports: CAD, High Cholesterol, Hypertension, ND, Stents Respiratory History: Reports: Asthma, COPD Gastrointestinal History: Reports: Gastritis, Other (See Below) Other Gastrointestinal History: ulcers Genitourinary History: Reports: Renal Calculus 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 itching and reddness - Past Surgical History Cardiovascular Surgical History: Reports: Coronary Artery Stent GI Surgical History: Reports: None, Appendectomy, Cholecystectomy Female Surgical History: Reports: None Social & Family History - Family History Family Medical History: Noncontributory Cardiac: Reports: CAD, High Cholesterol, Heart Failure, Hypertension Respiratory: Reports: Asthma, COPD GI: Reports: Cholelithiasis Musculoskeletal: Reports: Arthritis Endocrine/Metabolic: Reports: Diabetes, type II - Caffeine Use Caffeine Use: Reports: Coffee Other Caffeine Use: all day long - Living Situation & Occupation Living situation: Reports: with Family, ED ROS GENERAL - Review of Systems Review Of Systems: Comprehensive ROS is negative, except as noted in HPI. Course - Vital Signs Last Recorded V/S: Last Vital Signs Temp 38.9 C H 09/06/19 19:58 Pulse 114 H 09/06/19 18:18 Resp 20 09/06/19 18:18 BP 200/61 H 09/06/19 18:18 Pulse Ox 95 09/06/19 18:18 - Orders/Labs/Meds Orders: Active Orders 24 hr Category Date Time Status Peripheral IV Care [RC] . DIRECTED Care 09/06/19 18:27 Active RT Aerosol Therapy [RC] ASDIRECTED Care 09/06/19 18:28 Active Chest 1V Frontal [CR] Stat Exams 09/06/19 18:26 Taken CULTURE BLOOD [BC] Stat Lab 09/06/19 18:43 Received CULTURE BLOOD [BC] Stat Lab 09/06/19 19:29 Results CULTURE URINE [] Stat Lab 09/06/19 19:29 Stop Req INFLUENZA A+B AG SCREEN [] Stat Lab 09/06/19 18:25 Ordered STREP SCRN A RAPID W CULT CONF [] Stat Lab 09/06/19 18:27 Ordered Sodium Chloride 0.9% [Normal Saline] 500 ml Med 09/06/19 18:30 Active IV .BOLUS Sodium Chloride 0.9% [Saline Flush] Med 09/06/19 18:27 Active 10 ml FLUSH ASDIRECTED PRN Blood Culture x2 Reflex Set [OM.PC] Stat Oth 09/06/19 18:26 Ordered Peripheral IV Insertion Adult [OM.PC] Stat Oth 09/06/19 18:26 Ordered Medication Orders Sodium Chloride (Normal Saline) 500 mls @ 999 mls/hr IV .BOLUS MARIA A Last Admin: 09/06/19 19:05 Dose: 999 mls/hr Sodium Chloride (Saline Flush) 10 ml FLUSH ASDIRECTED PRN PRN Reason: Keep Vein Open Last Admin: 09/06/19 19:30 Dose: 10 ml Labs: Laboratory Tests 09/06/19 09/06/19 09/06/19 Range/Units 18:43 18:43 18:43 WBC 11.5 H (5.0-10.0) 10^3/uL RBC 4.99 (4.2-5.4) 10^6/uL Hgb 14.7 (12.0-16.0) g/dL Hct 43.7 (37.0-47.0) % MCV 87.6 (80-100) fL MCH 29.5 (27.0-34.0) pg MCHC 33.6 (33.0-35.0) g/dL Plt Count 171 (150-450) 10^3/uL Neut % (Auto) 84.9 H (42.2-75.2) % Lymph % (Auto) 9.3 L (20.5-50.1) % [place] % (Auto) 4.7 (2-8) % Eos % (Auto) 0.9 L (1.0-3.0) % Baso % (Auto) 0.2 (0.0-1.0) % Sodium 134 L (135-145) mmol/L Potassium 3.6 (3.6-5.0) mmol/L Chloride 98 L (101-111) mmol/L Carbon Dioxide 25.0 (21.0-31.0) mmol/L Anion Gap 14.6 BUN 18 (7-18) mg/dL Creatinine 0.7 (0.6-1.3) mg/dL Est Cr Clr Drug Dosing 63.37 mL/min Estimated GFR (MDRD) > 60 BUN/Creatinine Ratio 25.71 Glucose 212 H (74-105) mg/dL Lactic Acid 1.5 (0.5-2.0) mmol/L Calcium 8.3 L (8.4-10.2) mg/dl Total Bilirubin 0.6 (0.2-1.0) mg/dL AST 19 (10-42) IU/L ALT 16 (10-60) IU/L Alkaline Phosphatase 95 (42-121) IU/L Total Protein 6.7 (6.7-8.2) g/dl Albumin 3.7 (3.2-5.5) g/dl Globulin 3.0 Albumin/Globulin Ratio 1.23 Lipase 49 (22-51) U/L Urine Color (YELLOW) Urine Appearance (CLEAR) Urine pH (5.0-9.0) Ur Specific [place] (1.005-1.030) Urine Protein (NEGATIVE) Urine Glucose (UA) (NEGATIVE) Urine Ketones (NEGATIVE) Urine Occult Blood (NEGATIVE) Urine Nitrite (NEGATIVE) Urine Bilirubin (NEGATIVE) Urine Urobilinogen (0.2-1.0) mg/dL Ur Leukocyte Esterase (NEGATIVE) Urine RBC /HPF Urine WBC (0-5/HPF) /HPF Ur Epithelial Cells (NOT SEEN) /HPF Amorphous Sediment (NOT SEEN) /HPF Urine Bacteria (0-FEW/HPF) /HPF Urine Mucus (NOT SEEN) /LPF 09/06/19 09/06/19 Range/Units 19:29 20:27 WBC (5.0-10.0) 10^3/uL RBC (4.2-5.4) 10^6/uL Hgb (12.0-16.0) g/dL Hct (37.0-47.0) % MCV (80-100) fL MCH (27.0-34.0) pg MCHC (33.0-35.0) g/dL Plt Count (150-450) 10^3/uL Neut % (Auto) (42.2-75.2) % Lymph % (Auto) (20.5-50.1) % [place] % (Auto) (2-8) % Eos % (Auto) (1.0-3.0) % Baso % (Auto) (0.0-1.0) % Sodium (135-145) mmol/L Potassium (3.6-5.0) mmol/L Chloride (101-111) mmol/L Carbon Dioxide (21.0-31.0) mmol/L Anion Gap BUN (7-18) mg/dL Creatinine (0.6-1.3) mg/dL Est Cr Clr Drug Dosing mL/min Estimated GFR (MDRD) BUN/Creatinine Ratio Glucose (74-105) mg/dL Lactic Acid (0.5-2.0) mmol/L Calcium (8.4-10.2) mg/dl Total Bilirubin (0.2-1.0) mg/dL AST (10-42) IU/L ALT (10-60) IU/L Alkaline Phosphatase (42-121) IU/L Total Protein (6.7-8.2) g/dl Albumin (3.2-5.5) g/dl Globulin Albumin/Globulin Ratio Lipase (22-51) U/L Urine Color Yellow Yellow (YELLOW) Urine Appearance Slightly cloudy Slightly cloudy (CLEAR) Urine pH 7.0 7.0 (5.0-9.0) Ur Specific [place] 1.025 1.020 (1.005-1.030) Urine Protein >=300 H 100 H (NEGATIVE) Urine Glucose (UA) 100 H 100 H (NEGATIVE) Urine Ketones 15 H Trace H (NEGATIVE) Urine Occult Blood Trace-intact H Negative (NEGATIVE) Urine Nitrite Negative Negative (NEGATIVE) Urine Bilirubin Negative Negative (NEGATIVE) Urine Urobilinogen 2.0 H 4.0 H (0.2-1.0) mg/dL Ur Leukocyte Esterase Trace H Trace H (NEGATIVE) Urine RBC 0-5 0-5 /HPF Urine WBC 20-30 H 10-20 H (0-5/HPF) /HPF Ur Epithelial Cells Moderate H Moderate H (NOT SEEN) /HPF Amorphous Sediment Few Few (NOT SEEN) /HPF Urine Bacteria Few Few (0-FEW/HPF) /HPF Urine Mucus Few H Rare (NOT SEEN) /LPF Meds: Medications Generic Name Dose Route Start Last Admin Trade Name Freq PRN Reason Stop Dose Admin Sodium Chloride 500 mls @ 999 mls/hr 09/06/19 18:30 09/06/19 19:05 Normal Saline IV 999 mls/hr .BOLUS MARIA A Administration Sodium Chloride 10 ml 09/06/19 18:27 09/06/19 19:30 Saline Flush FLUSH 10 ml ASDIRECTED PRN Administration Keep Vein Open Discontinued Medications Generic Name Dose Route Start Last Admin Trade Name Freq PRN Reason Stop Dose Admin Acetaminophen 1,000 mg 09/06/19 19:43 09/06/19 19:58 Tylenol Extra Strength PO 09/06/19 19:44 1,000 mg ONETIME ONE Administration Albuterol/Ipratropium 3 ml 09/06/19 18:27 09/06/19 18:52 Duoneb 3.0-0.5 Mg/3 Ml NEB 09/06/19 18:28 3 ml ONETIME ONE Administration Doxycycline Hyclate 100 mg 09/06/19 20:09 09/06/19 20:34 Vibramycin PO 09/06/19 20:10 100 mg ONETIME ONE Administration Ceftriaxone Sodium 2 gm/ 100 mls @ 200 mls/hr 09/06/19 20:09 09/06/19 20:34 Sodium Chloride IV 09/06/19 20:38 200 mls/hr ONETIME ONE Administration Methylprednisolone Sodium Succinate 125 mg 09/06/19 18:27 09/06/19 18:53 Solu-Medrol IVPUSH 09/06/19 18:28 125 mg ONETIME ONE Administration Ondansetron HCl 4 mg 09/06/19 18:27 09/06/19 18:53 Zofran IV 09/06/19 18:28 4 mg ONETIME ONE Administration - Re-Assessments/Exams Free Text/Narrative Re-Assessment/Exam: 09/06/19 19:01 Care of pt transferred to 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 Departure - Departure Disposition: Home, Self-Care 01 Clinical Impression: UTI (urinary tract infection) Qualifiers: Urinary tract infection type: site unspecified Hematuria presence: with hematuria Qualified Code(s): N39.0 - Urinary tract infection, site not specified ; R31.9 - Hematuria, unspecified Pneumonia Qualifiers: Pneumonia type: due to unspecified organism Laterality: bilateral Lung location : lower lobe of lung Qualified Code(s): J18.9 - Pneumonia, unspecified organism - Discharge Information Instructions: Urinary Tract Infection, Adult, [id number], Community-Acquired Pneumonia, Adult, [id number] Forms: ED Department Discharge Additional Instructions: Tylenol and or Ibuprofen as needed for pain fever discomfort. increase fluids over the next few days. Continue previous therapies with COPD. Cefdinir 1 capsule twice daily for the next 7 days. RX given to the patient # 14. Azithromycin, 1 capsule daily for the next 5 days. RX given to the patient #5. Return to the ED if new or worsening symptoms. Follow up with PCP in the next 4-6 days if not improving sooner if worse. Sepsis Event Note - Focused Exam Vital Signs: Vital Signs Temp Temp Pulse Resp BP Pulse Ox 09/06/19 19:58 38.9 C H 09/06/19 19:38 38.9 C H 09/06/19 18:18 39.2 C H 114 H 20 200/61 H 95 Date Exam was Performed: 09/06/19 Time Exam was Performed: 19:01 <Chandler Shen Whit - Last Filed: 09/06/19 21:12> ED HPI GENERAL MEDICAL PROBLEM - History of Present Illness INITIAL COMMENTS - FREE TEXT/NARRATIVE: Denies any generalized body aches. No nausea or vomiting. No diarrhea. NO hematuria dysuria or urinary frequency. Upon my take over of care from Dr. Vu the patient is really without any complaints and already feels much better. ED EXAM, GENERAL - Physical Exam Exam: See Below Exam Limited By: No Limitations General Appearance: Alert, WD/WN, No Apparent Distress Eye Exam: Bilateral Eye: Normal Inspection Ears: Normal External Exam, Normal TMs Nose: Normal Inspection, Normal Mucosa Throat/Mouth: Normal Inspection, Normal Lips, Normal Oropharynx, Perioral Cyanosis Head: Atraumatic Neck: Normal Inspection, Supple, Non-Tender Respiratory/Chest: No Respiratory Distress, No Accessory Muscle Use, Chest Non- Tender, Decreased Breath Sounds, Wheezing (faint very late expiratory wheezing. ), Other (exam is after the patient had a nebulizer. ). No: Crackles, Rales, Rhonchi Cardiovascular: Normal Peripheral Pulses, Regular Rate, Rhythm, Tachycardia Peripheral Pulses: 2+: Radial (L), Radial (R), Posterior Tibial (L), Posterior Tibial (R), Dorsalis Pedis (L), Dorsalis Pedis (R) GI/Abdominal: Normal Bowel Sounds, Soft, No Abnormal Bruit Back Exam: Normal Inspection. No: CVA Tenderness (L), CVA Tenderness (R) Extremities: Normal Inspection, Normal Range of Motion, Non-Tender, Normal Capillary Refill Neurological: Alert, Oriented, CN II-XII Intact, Normal Cognition, No Motor/ Sensory Deficits Psychiatric: Normal Affect, Normal Mood Skin Exam: Dry, Intact, Normal Color, Increased Warmth Course - Radiology Interpretation Free Text/Narrative:: [facility] Final Radiology Report Call: [phone] assistance Online chat: [email or web address] Name: JASMYN DICKSON Age: 64Years F Date: 09/06/2019 SSN: -- : [id number] Study: XR CHEST 1 VIEW FRONTAL Requesting Physician: LOUIS VU Images: 1 Addl Studies: Provided Clinical History: Contrast: Contrast Medium: Contrast Amount: Contrast Method: CONFIDENTIALITY STATEMENT This report is intended only for use by the referring physician, and only in accordance with law. If you received this in error, call [phone]. Page 1 of 1 PROCEDURE INFORMATION: Exam: XR Chest, 1 View Exam date and time: 09/06/2019 6:46 PM Age: 64 years old Clinical indication: Cough and shortness of breath and other: Copd TECHNIQUE: Imaging protocol: XR of the chest Views: 1 view. COMPARISON: CR Chest 2V 08/14/2017 8:47 PM FINDINGS: Lungs: The lungs are hyperinflated, consistent with underlying small airways disease. Nonspecific bibasilar consolidation is present, consistent with atelectasis, edema, or pneumonia. Pleural space: Unremarkable. No pleural effusion. No pneumothorax. Heart/Mediastinum: The heart is not enlarged. Bones/joints: The thoracic spine demonstrates moderate degenerative changes at multiple levels. Soft tissues: There are no soft tissue masses or fluid collections. IMPRESSION: 1. The lungs are hyperinflated, consistent with underlying small airways disease. 2. Nonspecific bibasilar consolidation is present, consistent with atelectasis, edema, or pneumonia. Thank you for allowing us to participate in the care of your patient. Dictated and Authenticated by: Patric Davis DO 09/06/2019 7:20 PM Central Time ([place] & [place]) - Re-Assessments/Exams Free Text/Narrative Re-Assessment/Exam: 09/06/19 20:58 chest x-ray is questionable for atelectasis pneumonia or edema. Urine is clearly infectious. Her fever improved after some Tylenol and hydration. I went back over history of present illness and she really complains of shaking chills. No increased shortness of breath cough or congestion. No chest pain. Really don't feel that she has any instance of COPD exacerbation. We will send her home on some Cefdinir to cover her for urinary tract infection and a z pack for the ? pneumonia but really not COPD exacerbation so no steroids at this time. If develops any new symptoms or unable to keep anti-biotics down she will recheck. She is comfortable with this plan and her questions answered. Departure - Departure Time of Disposition: 21:00 Sepsis Event Note - Focused Exam Date Exam was Performed: 09/06/19 Time Exam was Performed: 20:58 - Assessment/Plan Assessment:: UTi ? pneumonia vs atelectasis will cover for pneumonia with her history. Plan: Tylenol and or Ibuprofen as needed for pain fever discomfort. increase fluids over the next few days. Continue previous therapies with COPD. Cefdinir 1 capsule twice daily for the next 7 days. RX given to the patient # 14. Azithromycin, 1 capsule daily for the next 5 days. RX given to the patient #5. Return to the ED if new or worsening symptoms. Follow up with PCP in the next 4-6 days if not improving sooner if worse.
[2019-09-06] MEDS ORDERED: Ondansetron 4 MG/2 ML SDV IV ONE (18:27)
[2019-09-06] MEDS ORDERED: Albuterol/Ipratropium 3.0-0.5 MG/3 ML Neb Soln NEB ONE (18:27)
[2019-09-06] MEDS ORDERED: methylPREDNISolone Sodium Succinate 125 MG/2 ML SDV IVPUSH ONE (18:27)
[2019-09-06] MEDS ORDERED: Sodium Chloride 0.9% 10 ML Syringe FLUSH PRN (18:27)
[2019-09-06] MEDS ORDERED: Sodium Chloride 0.9% 500 ML IV SCH (18:30)
[2019-09-06 19:13] LABS: ANION GAP 14.6; CHLORIDE,CL 98 mmol/L (101-111); SODIUM,NA 134 mmol/L (135-145)
[2019-09-06] MEDS ORDERED: Acetaminophen 500 MG Tab PO ONE (19:43)
[2019-09-06] MEDS ORDERED: cefTRIAXone 2 GM in Sodium Chloride 0.9% 100 ML IV ONE (20:09)
[2019-09-06] MEDS ORDERED: Doxycycline 100 MG Cap PO ONE (20:09)
== END 2019-09-06 21:30 | disposition home or self-care (01) ==
LOC: DL.ED 18:13
DX: J18.9 Pneumonia, unspecified organism (principal); N39.0 Urinary tract infection, site not specified; R31.9 Hematuria, unspecified; I10 Essential (primary) hypertension; E78.00 Pure hypercholesterolemia, unspecified; I25.2 Old myocardial infarction; I25.10 Atherosclerotic heart disease of native coronary artery without angina pectoris; J44.9 Chronic obstructive pulmonary disease, unspecified; E11.40 Type 2 diabetes mellitus with diabetic neuropathy, unspecified; Z86.73 Personal history of transient ischemic attack (TIA), and cerebral infarction without residual deficits; Z79.4 Long term (current) use of insulin; Z79.82 Long term (current) use of aspirin; Z79.02 Long term (current) use of antithrombotics/antiplatelets; Z79.899 Other long term (current) drug therapy
CPT/HCPCS: 36415; 71045; 80053; 81001; 83605; 83690; 85025; 87040; 87086; 94640; 96365; 96375; 99285; A9270; J0696; J2405; J2930; J7040; J7050; J7620-GY

== ENCOUNTER 2023-04-22 15:58 | Emergency (ER) | payer MEDICARE, MEDICAID ==
[2023-04-22 16:18] LABS: BASOPHILS PERCENT AUTO 0.3 % (0.0-1.0); EOSINOPHILS PERCENT AUTO 1.8 % (1.0-3.0); HEMATOCRIT 43.2 % (37.0-47.0); HEMOGLOBIN 14.2 g/dL (12.0-16.0); LYMPHOCYTES PERCENT AUTO 24.5 % (20.5-50.1); MEAN CORPUSCULAR HEMOGLOBIN 28.4 pg (27.0-34.0); MEAN CORPUSCULAR HGB CONC 32.9 g/dL (33.0-35.0); MEAN CORPUSCULAR VOLUME 86.4 fL (80-100); MONOCYTES PERCENT AUTO 5.1 % (2-8); NEUTROPHILS PERCENT AUTO 68.3 % (42.2-75.2); PLATELET COUNT,PLT 339 10^3/uL (150-450); WHITE BLOOD CELL COUNT,WBC 11.6 10^3/uL (5.0-10.0)
[2023-04-22 16:26] VITALS: BP 194/75; PULSE 81
[2023-04-22 16:33] LABS: ALBUMIN 3.3 g/dL (3.4-5.0); ANION GAP 11.7 mEq/L (7-13); BILIRUBIN TOTAL 0.3 mg/dL (0.2-1.0); BUN/CREATININE RATIO 9.5 (No establ ref range); CALCIUM 9.6 mg/dL (8.5-10.1); CREATININE 0.74 mg/dL (0.55-1.02); EST CRCL DRUG DOSING (CG) 57.55 mL/min; POTASSIUM,K 3.7 mmol/L (3.5-5.1); PROTEIN TOTAL,TP 8.4 g/dL (6.4-8.2)
[2023-04-22 16:34] LABS: A/G RATIO 0.65
[2023-04-22] MEDS: Ondansetron 4 MG/2 ML SDV IVPUSH ONE (16:39)
[2023-04-22] MEDS: Sodium Chloride 0.9% 10 ML Syringe FLUSH PRN (16:42)
[2023-04-22] MEDS: Iopamidol 612 MG/ML 100 ML Bottle IVPUSH ONE (17:26)
[2023-04-22 17:35] LABS: APPEARANCE,URINE CLEAR (CLEAR); BILIRUBIN,URINE NEGATIVE (NEGATIVE); COLOR,URINE YELLOW (YELLOW); GLUCOSE,URINE 500 (NEGATIVE); KETONES,URINE NEGATIVE (NEGATIVE); LEUKOCYTE ESTERASE,URINE SMALL (NEGATIVE); NITRITE,URINE NEGATIVE (NEGATIVE); OCCULT BLOOD,URINE TRACE-INTACT (NEGATIVE); PH,URINE 7.5 (5.0-9.0); PROTEIN,URINE 100 (NEGATIVE); UROBILINOGEN,URINE 0.2 mg/dL (0.2-1.0)
[2023-04-22 18:03] LABS: BACTERIA,URINE MODERATE /HPF (0-FEW/HPF); EPITHELIAL CELLS,URINE MODERATE /HPF (NOT SEEN); MUCUS,URINE FEW /LPF (NOT SEEN)
[2023-04-22] MEDS: Cephalexin 500 MG Cap PO ONE (18:13)
== END 2023-04-22 18:20 ==
LOC: DL.ED 15:58
DX: K56.7 Ileus, unspecified (principal); N39.0 Urinary tract infection, site not specified; I25.10 Atherosclerotic heart disease of native coronary artery without angina pectoris; I10 Essential (primary) hypertension; E78.00 Pure hypercholesterolemia, unspecified; I25.2 Old myocardial infarction; J44.9 Chronic obstructive pulmonary disease, unspecified; E11.40 Type 2 diabetes mellitus with diabetic neuropathy, unspecified; Z90.49 Acquired absence of other specified parts of digestive tract; Z79.82 Long term (current) use of aspirin; Z79.4 Long term (current) use of insulin; Z79.02 Long term (current) use of antithrombotics/antiplatelets; Z79.899 Other long term (current) drug therapy
CPT/HCPCS: 36415; 74177; 80053; 81001; 82272; 83690; 85025; 87086; 96374; 99284; A9270; J2405; Q9967; J3490

== ENCOUNTER 2024-05-01 14:26 | Emergency (ER) | payer MEDICARE, MEDICAID ==
[2024-05-01 14:38] VITALS: BP 130/47; PULSE 76
[2024-05-01 15:07] LABS: BASOPHILS PERCENT AUTO 0.5 % (0.0-1.0); EOSINOPHILS PERCENT AUTO 3.2 % (1.0-3.0); HEMATOCRIT 33.7 % (37.0-47.0); HEMOGLOBIN 11.1 g/dL (12.0-16.0); LYMPHOCYTES PERCENT AUTO 24.7 % (20.5-50.1); MEAN CORPUSCULAR HGB CONC 32.9 g/dL (33.0-35.0); MEAN CORPUSCULAR VOLUME 91.1 fL (80-100); MONOCYTES PERCENT AUTO 6.2 % (2-8); NEUTROPHILS PERCENT AUTO 65.4 % (42.2-75.2); PLATELET COUNT,PLT 211 10^3/uL (150-450); WHITE BLOOD CELL COUNT,WBC 5.9 10^3/uL (5.0-10.0)
[2024-05-01] MEDS: Albuterol/Ipratropium 3.0-0.5 MG/3 ML Neb Soln NEB ONE (15:16)
[2024-05-01] MEDS: Meclizine 12.5 MG Tab PO ONE (15:16)
[2024-05-01 15:24] LABS: A/G RATIO 0.75; ANION GAP 10.1 mEq/L (7-13); BILIRUBIN TOTAL 0.2 mg/dL (0.2-1.0); CREATININE 0.94 mg/dL (0.55-1.02); EST CRCL DRUG DOSING (CG) 44.04 mL/min; POTASSIUM,K 4.1 mmol/L (3.5-5.1)
[2024-05-01] MEDS: Dexamethasone 4 MG/ML SDV IVPUSH ONE (17:02)
[2024-05-01] MEDS: Labetalol 20 MG/4 ML Syringe IVPUSH ONE (17:13)
[2024-05-01] MEDS: Labetalol 20 MG/4 ML Syringe ONE (17:13)
== END 2024-05-01 17:30 ==
LOC: DL.ED 14:26
DX: C34.91 Malignant neoplasm of unspecified part of right bronchus or lung (principal); C79.31 Secondary malignant neoplasm of brain; J41.1 Mucopurulent chronic bronchitis; E78.00 Pure hypercholesterolemia, unspecified; I25.10 Atherosclerotic heart disease of native coronary artery without angina pectoris; I10 Essential (primary) hypertension; I25.2 Old myocardial infarction; Z95.5 Presence of coronary angioplasty implant and graft; Z86.73 Personal history of transient ischemic attack (TIA), and cerebral infarction without residual deficits; E11.9 Type 2 diabetes mellitus without complications; Z86.16 Personal history of COVID-19; Z90.49 Acquired absence of other specified parts of digestive tract; F17.210 Nicotine dependence, cigarettes, uncomplicated; Z79.4 Long term (current) use of insulin; Z79.82 Long term (current) use of aspirin; Z79.899 Other long term (current) drug therapy; Z88.1 Allergy status to other antibiotic agents; Z88.7 Allergy status to serum and vaccine; Z88.5 Allergy status to narcotic agent
CPT/HCPCS: 36415; 70450; 80053; 85025; 96374; 96375; 99285; A9270; J1100; J1920; J7620-GY

== ENCOUNTER 2024-10-19 12:33 | Emergency (ER) | payer MEDICAID, MEDICARE ==
[2024-10-19] MEDS ORDERED: Sodium Chloride 0.9% 10 ML Syringe FLUSH PRN ×2 (12:47)
[2024-10-19 13:06] LABS: HEMATOCRIT 27.3 % (37.0-47.0); HEMOGLOBIN 8.6 g/dL (12.0-16.0); MEAN CORPUSCULAR HEMOGLOBIN 27.4 pg (27.0-34.0); MEAN CORPUSCULAR HGB CONC 31.5 g/dL (33.0-35.0); MEAN CORPUSCULAR VOLUME 86.9 fL (80-100); PLATELET COUNT,PLT 243 10^3/uL (150-450); RED BLOOD CELL COUNT 3.14 10^6/uL (4.2-5.4); WHITE BLOOD CELL COUNT,WBC 2.9 10^3/uL (5.0-10.0)
[2024-10-19 13:09] LABS: BASOPHILS PERCENT AUTO 1.4 % (0.0-1.0); LYMPHOCYTES PERCENT AUTO 41.2 % (20.5-50.1); MONOCYTES PERCENT AUTO 3.5 % (2-8); NEUTROPHILS PERCENT AUTO 52.9 % (42.2-75.2)
[2024-10-19 13:23] LABS: INR 1.1 (0.9-1.2); PROTHROMBIN TIME 11.2 SEC (9.0-12.0)
[2024-10-19 13:26] LABS: ALBUMIN 2.3 g/dL (3.4-5.0); ANION GAP 9.6 mEq/L (7-13); BILIRUBIN TOTAL 0.6 mg/dL (0.2-1.0); BUN/CREATININE RATIO 10.8 (No establ ref range); CALCIUM 8.7 mg/dL (8.5-10.1); CREATININE 0.65 mg/dL (0.55-1.02); EST CRCL DRUG DOSING (CG) 63.69 mL/min; POTASSIUM,K 3.6 mmol/L (3.5-5.1); PROTEIN TOTAL,TP 6.3 g/dL (6.4-8.2)
[2024-10-19 13:28] LABS: A/G RATIO 0.58
[2024-10-19 13:41] LABS: LYMPHOCYTES PERCENT MAN 38 % (20-50); MONOCYTES PERCENT MAN 5 % (2-8); SEG NEUTROPHILS PERCENT MAN 57 % (42-75)
[2024-10-19 15:04] VITALS: BP 160/126; PULSE 73
[2024-10-19] MEDS: Iopamidol 612 MG/ML 100 ML Bottle IVPUSH ONE (15:04)
[2024-10-19] MEDS: Iopamidol 755 Mg/ML 100 ML Bottle IVPUSH ONE (15:51)
== END 2024-10-19 16:41 | disposition home or self-care (01) ==
LOC: DL.ED 12:33
DX: C34.92 Malignant neoplasm of unspecified part of left bronchus or lung (principal); R07.1 Chest pain on breathing; I25.10 Atherosclerotic heart disease of native coronary artery without angina pectoris; E78.00 Pure hypercholesterolemia, unspecified; I10 Essential (primary) hypertension; I25.2 Old myocardial infarction; E11.40 Type 2 diabetes mellitus with diabetic neuropathy, unspecified; Z95.5 Presence of coronary angioplasty implant and graft; Z88.1 Allergy status to other antibiotic agents; Z88.7 Allergy status to serum and vaccine; Z79.82 Long term (current) use of aspirin; Z79.899 Other long term (current) drug therapy; Z86.73 Personal history of transient ischemic attack (TIA), and cerebral infarction without residual deficits; Z86.16 Personal history of COVID-19
CPT/HCPCS: 36415; 71045; 71275; 80053; 85025; 85379; 85610; 99285; J1642; Q9967